=== PATIENT | male | born 1955 | race Caucasian/White ===

== ENCOUNTER 2020-12-06 05:17 | Emergency (ER) | payer MEDICARE, OTHER ==
[~2020-12-06 05:17] MED LIST: ALTACE10 MG PO; ASPIRIN EC81 MG PO; ATORVASTATIN CA40 MG PO; BENTYL10 MG PO; CARAFATE1 GM PO; CITALOPRAM HBR20 MG PO; CYCLOBENZAPRINE10 MG PO; ELIQUIS2.5 MG PO; GABAPENTIN600 MG PO; INVOKANA300 MG PO; JARDIANCE25 MG PO; MELOXICAM15 MG PO; METFORMIN HCL1000 MG PO; METOPROLOL SUCC25 MG PO; MICRONASE5 MG PO; MOTRIN600 MG PO; MYLICON80 MG PO; NAPROSYN250 MG PO; NORCO 5-325 TA1 EACH PO; OMEPRAZOLE 20MG20 MG PO; ONDANSETRON ODT4 MG PO; PHENERGAN12.5 M1 PO; PLAVIX75 MG PO; RAMIPRIL5 MG PO; SUCRALFATE1 GM PO; TAMSULOSIN HCL0.4 MG PO; TRULICITY1.5 MG/0.5 SC
[2020-12-06 05:49] LABS: BASOPHIL 1.1 % (0-2); HCT 49.4 % (42.0-52.0); HGB 17.7 g/dl (13.2-18.0); LYMPHOCYTE 25.6 % (15-48); MCH 30.5 pg (25.0-31.0); MCHC 35.8 g/dL (32.0-36.0); MCV 85.2 fL (78.0-100.0); MONOCYTE 12.9 % (0-12); MPV 10.3 fL (6.0-9.5); NEUTROPHIL 56.3 % (41-80); NRBC 0; PLT 230 K/uL (150-400); RDW 12.3 % (11.5-14.0); WBC 7.2 K/uL (4.0-10.5)
[2020-12-06 06:05] LABS: ALBUMIN 3.4 g/dL (3.4-5.0); BILIRUBIN - TOTAL 1.4 mg/dL (0.2-1.0); BUN/CREAT RATIO (CALC) 17.8 RATIO; CREATININE 0.9 mg/dL (0.67-1.17); GLOBULIN (CALCULATION) 3.7 g/dL; TOTAL PROTEIN 7.1 g/dL (6.4-8.2)
[2020-12-06 07:05] LABS: BILIRUBIN 1+ mg/dL (NEGATIVE); BLOOD NEGATIVE Ery/uL (NEGATIVE); CLARITY CLEAR (CLEAR); COLOR YELLOW (YELLOW); GLUCOSE (U) 3+ mg/dL (NORMAL); LEUKOCYTES NEGATIVE Leu/uL (NEGATIVE); NITRITE NEGATIVE (NEGATIVE); PROTEIN 2+ mg/dL (NEGATIVE); SPECIFIC GRAVITY >=1.030 (1.001-1.030)
[2020-12-06] MEDS ORDERED: ONDANSETRON ODT4 MG PO (07:15)
[2020-12-06 07:18] LABS: SQUAMOUS EPITHELIAL CELLS RARE
== END 2020-12-06 12:32 | disposition home or self-care (01) ==
LOC: FER 05:17
PROVIDERS: Student in an Organized Health Care Education/Training Program
DX: R11.2 Nausea with vomiting, unspecified (principal); R19.7 Diarrhea, unspecified; E87.6 Hypokalemia; I10 Essential (primary) hypertension; E11.9 Type 2 diabetes mellitus without complications; J44.9 Chronic obstructive pulmonary disease, unspecified; Z86.73 Personal history of transient ischemic attack (TIA), and cerebral infarction without residual deficits; Z85.820 Personal history of malignant melanoma of skin; Z79.82 Long term (current) use of aspirin; Z79.84 Long term (current) use of oral hypoglycemic drugs; Z79.02 Long term (current) use of antithrombotics/antiplatelets; Z79.01 Long term (current) use of anticoagulants; Z91.81 History of falling
CPT/HCPCS: 36415; 71045; 80053; 81001; 84484; 85025; 93005; J2405; J7030

== ENCOUNTER 2020-12-07 01:52 | Emergency (ER) | payer MEDICARE, OTHER | END 2020-12-07 02:11 | disposition left against medical advice (07) | LOC: FER 01:52 | DX: R10.9 Unspecified abdominal pain (principal); R11.0 Nausea; Z53.8 Procedure and treatment not carried out for other reasons ==

== ENCOUNTER 2020-12-20 12:54 | Emergency (ER) | payer MEDICARE, OTHER ==
[2020-12-20 14:59] LABS: EOSINOPHIL 4.7 % (0-7); HCT 48.3 % (42.0-52.0); HGB 17.7 g/dl (13.2-18.0); LYMPHOCYTE 24.3 % (15-48); MCH 30.9 pg (25.0-31.0); MCHC 36.6 g/dL (32.0-36.0); MCV 84.3 fL (78.0-100.0); MONOCYTE 9.1 % (0-12); MPV 10.8 fL (6.0-9.5); NEUTROPHIL 60.7 % (41-80); NRBC 0; PLT 241 K/uL (150-400); RBC 5.73 M/uL (4.70-6.00); RDW 12.1 % (11.5-14.0); WBC 5.9 K/uL (4.0-10.5)
[2020-12-20 15:12] LABS: BILIRUBIN NEGATIVE (NEGATIVE); BLOOD TRACE-LYSED Ery/uL (NEGATIVE); CLARITY CLEAR (CLEAR); COLOR YELLOW (YELLOW); GLUCOSE (U) 3+ mg/dL (NORMAL); LEUKOCYTES NEGATIVE Leu/uL (NEGATIVE); NITRITE NEGATIVE (NEGATIVE); PROTEIN NEGATIVE (NEGATIVE); SPECIFIC GRAVITY <=1.005 (1.001-1.030); UROBILINOGEN 0.2 mg/dL (0.2-1.0); pH 6.5 (5.0-9.0)
[2020-12-20 15:25] LABS: ALBUMIN 3.5 g/dL (3.4-5.0); BILIRUBIN - TOTAL 1.1 mg/dL (0.2-1.0); BUN/CREAT RATIO (CALC) 13.4 RATIO; CREATININE 0.82 mg/dL (0.67-1.17); GLOBULIN (CALCULATION) 3.9 g/dL; POTASSIUM 3.5 mmol/L (3.5-5.1); TOTAL PROTEIN 7.4 g/dL (6.4-8.2)
[2020-12-20 15:49] LABS: URINARY RBC RARE
[2020-12-20 16:03] LABS: CORONAVIRUS 2019 SARS-COV-2 NEGATIVE (NEGATIVE); INFLUENZA A NAA NEGATIVE (NEGATIVE)
== END 2020-12-20 15:29 | disposition left against medical advice (07) ==
LOC: FER 12:54
PROVIDERS: Emergency Medicine
DX: M79.10 Myalgia, unspecified site (principal); I10 Essential (primary) hypertension; J44.9 Chronic obstructive pulmonary disease, unspecified; E11.9 Type 2 diabetes mellitus without complications; Z53.8 Procedure and treatment not carried out for other reasons; Z20.822 Contact with and (suspected) exposure to COVID-19
CPT/HCPCS: 36415; 80053; 81001; 85025; 99283; U0002

== ENCOUNTER 2020-12-21 13:54 | Emergency (ER) | payer MEDICARE, OTHER | END 2020-12-21 15:15 | disposition left against medical advice (07) | LOC: FER 13:54 | DX: R06.02 Shortness of breath (principal); R10.9 Unspecified abdominal pain; R19.7 Diarrhea, unspecified; R11.0 Nausea; Z53.8 Procedure and treatment not carried out for other reasons ==

== ENCOUNTER 2020-12-25 04:42 | Emergency (ER) | payer MEDICARE, OTHER ==
[2020-12-25] MEDS ORDERED: BENTYL10 MG PO (20:41)
== END 2020-12-25 05:25 | disposition home or self-care (01) ==
LOC: FER 04:42
DX: K59.00 Constipation, unspecified (principal); I25.2 Old myocardial infarction; E11.9 Type 2 diabetes mellitus without complications; I10 Essential (primary) hypertension; Z90.49 Acquired absence of other specified parts of digestive tract; Z87.891 Personal history of nicotine dependence
CPT/HCPCS: 99283

== ENCOUNTER 2020-12-25 16:07 | Emergency (ER) | payer MEDICARE, OTHER ==
[2020-12-25 19:03] LABS: EOSINOPHIL 1.7 % (0-7); HCT 49.2 % (42.0-52.0); HGB 17.8 g/dl (13.2-18.0); LYMPHOCYTE 22.4 % (15-48); MCH 30.9 pg (25.0-31.0); MCHC 36.2 g/dL (32.0-36.0); MCV 85.4 fL (78.0-100.0); MPV 10.4 fL (6.0-9.5); NEUTROPHIL 62.9 % (41-80); NRBC 0; PLT 216 K/uL (150-400); RBC 5.76 M/uL (4.70-6.00); RDW 12.1 % (11.5-14.0); WBC 7.2 K/uL (4.0-10.5)
[2020-12-25 19:08] LABS: ALBUMIN 3.5 g/dL (3.4-5.0); BILIRUBIN - TOTAL 1.3 mg/dL (0.2-1.0); BUN/CREAT RATIO (CALC) 12.9 RATIO; CREATININE 0.93 mg/dL (0.67-1.17); POTASSIUM 3.7 mmol/L (3.5-5.1); TOTAL PROTEIN 7.5 g/dL (6.4-8.2)
[2020-12-25 19:09] LABS: BILIRUBIN NEGATIVE (NEGATIVE); BLOOD NEGATIVE Ery/uL (NEGATIVE); CLARITY HAZY (CLEAR); COLOR YELLOW (YELLOW); GLUCOSE (U) 2+ mg/dL (NORMAL); LEUKOCYTES NEGATIVE Leu/uL (NEGATIVE); NITRITE NEGATIVE (NEGATIVE); PROTEIN 2+ mg/dL (NEGATIVE); SPECIFIC GRAVITY 1.025 (1.001-1.030); UROBILINOGEN 0.2 mg/dL (0.2-1.0)
[2020-12-25 19:15] LABS: AMORPHOUS URATES CRYSTALS MODERATE; BACTERIA TRACE; SQUAMOUS EPITHELIAL CELLS RARE
[2020-12-25] MEDS ORDERED: BENTYL10 MG PO (20:41)
== END 2020-12-25 20:52 | disposition home or self-care (01) ==
LOC: FER 16:07
PROVIDERS: Physician Assistant
DX: K59.00 Constipation, unspecified (principal); R10.84 Generalized abdominal pain; R11.0 Nausea; I10 Essential (primary) hypertension; E11.9 Type 2 diabetes mellitus without complications; J44.9 Chronic obstructive pulmonary disease, unspecified; Z90.49 Acquired absence of other specified parts of digestive tract; Z85.828 Personal history of other malignant neoplasm of skin; Z79.899 Other long term (current) drug therapy; Z79.01 Long term (current) use of anticoagulants; Z79.82 Long term (current) use of aspirin
CPT/HCPCS: 36415; 71045; 80053; 81001; 83690; 84484; 85025; 87088; 93005; 99283; J2270; J2405; J7030

== ENCOUNTER 2020-12-28 15:28 | Emergency (ER) | payer MEDICARE, OTHER | END 2020-12-28 17:30 | disposition left against medical advice (07) | LOC: FER 15:28 | DX: R10.30 Lower abdominal pain, unspecified (principal); Z53.8 Procedure and treatment not carried out for other reasons | CPT/HCPCS: 74018 ==

== ENCOUNTER 2020-12-31 09:57 | Emergency (ER) | payer MEDICARE, OTHER ==
[2020-12-31] MEDS ORDERED: ATARAX25 MG PO (11:22)
[2020-12-31] MEDS ORDERED: MIRALAX17 GM PO (12:27)
== END 2020-12-31 12:52 | disposition home or self-care (01) ==
LOC: FER 09:57
DX: K59.00 Constipation, unspecified (principal); E11.9 Type 2 diabetes mellitus without complications; I10 Essential (primary) hypertension; Z90.49 Acquired absence of other specified parts of digestive tract
CPT/HCPCS: 99283

== ENCOUNTER 2021-01-02 15:42 | Emergency (ER) | payer MEDICARE, OTHER ==
[~2021-01-02 15:42] MED LIST changes: +ATARAX25 MG PO; +MIRALAX17 GM PO
== END 2021-01-02 16:31 | disposition home or self-care (01) ==
LOC: FER 15:42
DX: K59.00 Constipation, unspecified (principal); E11.9 Type 2 diabetes mellitus without complications; I10 Essential (primary) hypertension; J44.9 Chronic obstructive pulmonary disease, unspecified; I25.2 Old myocardial infarction; Z90.49 Acquired absence of other specified parts of digestive tract
CPT/HCPCS: 99283

== ENCOUNTER 2021-02-09 23:07 | Emergency (ER) | payer MEDICARE, OTHER ==
[2021-02-09 23:31] LABS: EOSINOPHIL 4.1 % (0-7); HCT 44.8 % (42.0-52.0); HGB 16.3 g/dl (13.2-18.0); LYMPHOCYTE 28.1 % (15-48); MCH 31.5 pg (25.0-31.0); MCHC 36.4 g/dL (32.0-36.0); MCV 86.7 fL (78.0-100.0); MPV 10.1 fL (6.0-9.5); NEUTROPHIL 54.7 % (41-80); NRBC 0; PLT 234 K/uL (150-400); RBC 5.17 M/uL (4.70-6.00); RDW 12.8 % (11.5-14.0); WBC 6.9 K/uL (4.0-10.5)
[2021-02-09 23:35] LABS: INR 1.07 (0.9-1.2); PROTHROMBIN TIME 13.2 SECONDS (11.4-13.6); PTT 28.3 SECONDS (22.2-34.7)
[2021-02-09 23:43] LABS: ALBUMIN 3.3 g/dL (3.4-5.0); ALKALINE PHOSHATASE 68 U/L (46-116); ALT 24 U/L (16-63); AST 20 U/L (15-37); BILIRUBIN - TOTAL 0.5 mg/dL (0.2-1.0); BUN 16 mg/dL (7-18); CHLORIDE 103 mmol/L (98-107); CO2 (BICARBONATE) 27 mmol/L (21-32); CREATININE 0.94 mg/dL (0.67-1.17); GLOBULIN (CALCULATION) 3.6 g/dL; GLUCOSE 287 mg/dL (74-106); LIPASE 244 U/L (73-393); MAGNESIUM 2.3 mg/dL (1.8-2.4); POTASSIUM 3.9 mmol/L (3.5-5.1); TOTAL PROTEIN 6.9 g/dL (6.4-8.2)
[2021-02-09 23:52] LABS: PRO-BNP 380 pg/mL (<125)
[2021-02-10 00:14] LABS: BILIRUBIN NEGATIVE (NEGATIVE); BLOOD NEGATIVE Ery/uL (NEGATIVE); CLARITY CLEAR (CLEAR); GLUCOSE (U) 3+ mg/dL (NORMAL); LEUKOCYTES NEGATIVE Leu/uL (NEGATIVE); NITRITE NEGATIVE (NEGATIVE); PROTEIN NEGATIVE (NEGATIVE); SPECIFIC GRAVITY 1.015 (1.001-1.030); UROBILINOGEN 0.2 mg/dL (0.2-1.0)
[2021-02-10 00:15] LABS: COLOR STRAW (YELLOW)
== END 2021-02-10 02:15 | disposition home or self-care (01) ==
LOC: FER 23:07
PROVIDERS: Emergency Medicine
DX: R07.89 Other chest pain (principal); I25.2 Old myocardial infarction; Z79.84 Long term (current) use of oral hypoglycemic drugs; Z79.02 Long term (current) use of antithrombotics/antiplatelets; Z79.82 Long term (current) use of aspirin; Z79.899 Other long term (current) drug therapy
CPT/HCPCS: 36415; 71045; 80053; 81003; 83690; 83735; 83880; 84145; 84484; 85025; 85610; 85730; 93005; G0480

== ENCOUNTER 2021-02-14 21:04 | Emergency (ER) | payer MEDICARE, OTHER ==
[2021-02-14 21:37] LABS: BASOPHIL 1.2 % (0-2); EOSINOPHIL 1.1 % (0-7); HCT 51.2 % (42.0-52.0); HGB 18.4 g/dl (13.2-18.0); LYMPHOCYTE 28.5 % (15-48); MCHC 35.9 g/dL (32.0-36.0); MCV 86.2 fL (78.0-100.0); MONOCYTE 11.9 % (0-12); NEUTROPHIL 57.1 % (41-80); NRBC 0; PLT 262 K/uL (150-400); RBC 5.94 M/uL (4.70-6.00); RDW 12.7 % (11.5-14.0); WBC 6.5 K/uL (4.0-10.5)
[2021-02-14 21:51] LABS: ALBUMIN 3.6 g/dL (3.4-5.0); BILIRUBIN - TOTAL 1.2 mg/dL (0.2-1.0); BUN/CREAT RATIO (CALC) 17.3 RATIO; CREATININE 1.04 mg/dL (0.67-1.17); GLOBULIN (CALCULATION) 3.5 g/dL; TOTAL PROTEIN 7.1 g/dL (6.4-8.2)
[2021-02-14 21:54] LABS: INR 1.05 (0.9-1.2); PTT 28.4 SECONDS (22.2-34.7)
[2021-02-14 21:56] LABS: D-DIMER 0.52 ug/mLFEU (0.00-0.41)
[2021-02-14 22:01] LABS: LACTIC ACID 2.2 mmol/L (0.4-1.9)
[2021-02-14 22:02] LABS: PRO-BNP 356 pg/mL (<125)
== END 2021-02-15 01:11 | disposition home or self-care (01) ==
LOC: FER 21:04
PROVIDERS: Emergency Medicine Emergency Medical Services
DX: S00.83XA Contusion of other part of head, initial encounter (principal); R07.89 Other chest pain; R42 Dizziness and giddiness; I49.1 Atrial premature depolarization; R53.1 Weakness; R10.84 Generalized abdominal pain; M79.662 Pain in left lower leg; M79.661 Pain in right lower leg; I25.2 Old myocardial infarction; I10 Essential (primary) hypertension; E11.9 Type 2 diabetes mellitus without complications; J44.9 Chronic obstructive pulmonary disease, unspecified; Z79.02 Long term (current) use of antithrombotics/antiplatelets; Z79.01 Long term (current) use of anticoagulants; W19.XXXA Unspecified fall, initial encounter
CPT/HCPCS: 36415; 70450; 70486; 71275; 72125; 80053; 82550; 83605; 83690; 83880; 84484; 85025; 85379; 85610; 85730; 93005; J7030; Q9967

== ENCOUNTER 2021-04-29 23:37 | Emergency (ER) | payer MEDICARE, OTHER ==
[2021-04-30 02:39] LABS: ALBUMIN 3.5 g/dL (3.4-5.0); BILIRUBIN - TOTAL 1.6 mg/dL (0.2-1.0); CREATININE 1.11 mg/dL (0.67-1.17); POTASSIUM 3.4 mmol/L (3.5-5.1); TOTAL PROTEIN 7.5 g/dL (6.4-8.2)
[2021-04-30 02:46] LABS: INR 0.98 (0.9-1.2); PROTHROMBIN TIME 12.3 SECONDS (11.4-13.6); PTT 25.7 SECONDS (22.2-34.7)
[2021-04-30 02:50] LABS: EOSINOPHIL 1.6 % (0-7); HCT 50.8 % (42.0-52.0); HGB 18.7 g/dl (13.2-18.0); LYMPHOCYTE 24.4 % (15-48); MCH 31.4 pg (25.0-31.0); MCHC 36.8 g/dL (32.0-36.0); MCV 85.2 fL (78.0-100.0); MONOCYTE 13.7 % (0-12); MPV 10.7 fL (6.0-9.5); NEUTROPHIL 59.2 % (41-80); NRBC 0; PLT 228 K/uL (150-400); RBC 5.96 M/uL (4.70-6.00); RDW 12.5 % (11.5-14.0)
== END 2021-04-30 01:27 | disposition home or self-care (01) ==
LOC: FER 23:37
PROVIDERS: Emergency Medicine
DX: S10.93XA Contusion of unspecified part of neck, initial encounter (principal); S20.229A Contusion of unspecified back wall of thorax, initial encounter; E11.65 Type 2 diabetes mellitus with hyperglycemia; I48.91 Unspecified atrial fibrillation; I48.92 Unspecified atrial flutter; R07.1 Chest pain on breathing; I25.2 Old myocardial infarction; I10 Essential (primary) hypertension; W06.XXXA Fall from bed, initial encounter
CPT/HCPCS: 36415; 71045; 72125; 72128; 80053; 84484; 85025; 85610; 85730; 93005

== ENCOUNTER 2021-06-01 12:51 | Emergency (ER) | payer MEDICARE, OTHER ==
[2021-06-01 14:28] LABS: BASOPHIL 1.1 % (0-2); EOSINOPHIL 1.7 % (0-7); HCT 48.1 % (42.0-52.0); HGB 17.4 g/dl (13.2-18.0); LYMPHOCYTE 14.9 % (15-48); MCH 31.1 pg (25.0-31.0); MCHC 36.2 g/dL (32.0-36.0); MCV 85.9 fL (78.0-100.0); MONOCYTE 8.8 % (0-12); MPV 10.9 fL (6.0-9.5); NEUTROPHIL 73.2 % (41-80); NRBC 0; PLT 201 K/uL (150-400); RDW 12.4 % (11.5-14.0); WBC 6.5 K/uL (4.0-10.5)
[2021-06-01 14:49] LABS: ALBUMIN 3.5 g/dL (3.4-5.0); BILIRUBIN - TOTAL 1.3 mg/dL (0.2-1.0); BUN/CREAT RATIO (CALC) 12.3 RATIO; CREATININE 1.22 mg/dL (0.67-1.17); GLOBULIN (CALCULATION) 3.3 g/dL; TOTAL PROTEIN 6.8 g/dL (6.4-8.2)
[2021-06-01 16:20] LABS: BILIRUBIN NEGATIVE (NEGATIVE); BLOOD NEGATIVE Ery/uL (NEGATIVE); CLARITY CLEAR (CLEAR); COLOR YELLOW (YELLOW); GLUCOSE (U) 3+ mg/dL (NORMAL); LEUKOCYTES NEGATIVE Leu/uL (NEGATIVE); NITRITE NEGATIVE (NEGATIVE); PROTEIN NEGATIVE (NEGATIVE)
== END 2021-06-01 17:16 | disposition home or self-care (01) ==
LOC: FER 12:51
PROVIDERS: Emergency Medicine
DX: E11.65 Type 2 diabetes mellitus with hyperglycemia (principal); J44.9 Chronic obstructive pulmonary disease, unspecified; I10 Essential (primary) hypertension; Z87.891 Personal history of nicotine dependence; Z79.84 Long term (current) use of oral hypoglycemic drugs
CPT/HCPCS: 36415; 71045; 80053; 81003; 84484; 85025; 93005; J7030

== ENCOUNTER 2021-06-18 11:31 | Emergency (ER) | payer OTHER, MEDICARE ==
[2021-06-18 12:28] LABS: BASOPHIL 1.4 % (0-2); EOSINOPHIL 3.5 % (0-7); HCT 48.7 % (42.0-52.0); HGB 17.9 g/dl (13.2-18.0); LYMPHOCYTE 25.2 % (15-48); MCH 30.8 pg (25.0-31.0); MCHC 36.8 g/dL (32.0-36.0); MCV 83.7 fL (78.0-100.0); MONOCYTE 13.1 % (0-12); MPV 10.4 fL (6.0-9.5); NEUTROPHIL 56.8 % (41-80); NRBC 0; PLT 205 K/uL (150-400); RBC 5.82 M/uL (4.70-6.00); WBC 5.1 K/uL (4.0-10.5)
[2021-06-18 12:54] LABS: BUN/CREAT RATIO (CALC) 12.5 RATIO; CREATININE 1.04 mg/dL (0.67-1.17); POTASSIUM 3.9 mmol/L (3.5-5.1)
[2021-06-18 13:18] LABS: BILIRUBIN NEGATIVE (NEGATIVE); BLOOD NEGATIVE Ery/uL (NEGATIVE); CLARITY CLEAR (CLEAR); COLOR YELLOW (YELLOW); GLUCOSE (U) 3+ mg/dL (NORMAL); LEUKOCYTES NEGATIVE Leu/uL (NEGATIVE); NITRITE NEGATIVE (NEGATIVE); PROTEIN NEGATIVE (NEGATIVE); UROBILINOGEN 0.2 mg/dL (0.2-1.0); pH 5.5 (5.0-9.0)
[2021-06-18] MEDS ORDERED: DICLOFENAC SODI75 MG PO (13:52)
[2021-06-18] MEDS ORDERED: CYCLOBENZAPRINE10 MG PO (13:52)
== END 2021-06-18 14:15 | disposition home or self-care (01) ==
LOC: FER 11:31
PROVIDERS: Emergency Medicine
DX: S13.4XXA Sprain of ligaments of cervical spine, initial encounter (principal); E11.65 Type 2 diabetes mellitus with hyperglycemia; I10 Essential (primary) hypertension; J44.9 Chronic obstructive pulmonary disease, unspecified; Z87.891 Personal history of nicotine dependence; V43.52XA Car driver injured in collision with other type car in traffic accident, initial encounter; Y92.410 Unspecified street and highway as the place of occurrence of the external cause
CPT/HCPCS: 36415; 70450; 72125; 80048; 81003; 85025; J1885; J2800; J7030; J7050

== ENCOUNTER 2021-06-23 09:35 | Inpatient (IN) | payer MEDICARE, OTHER ==
[~2021-06-23] VITALS: Ht 182.9 cm; Wt 105.9 kg
[~2021-06-23 09:35] MED LIST changes: +DICLOFENAC SODI75 MG PO
[2021-06-23 10:26] LABS: BASOPHIL 0.8 % (0-2); EOSINOPHIL 2.8 % (0-7); HCT 45.4 % (42.0-52.0); HGB 16.3 g/dl (13.2-18.0); MCH 31.2 pg (25.0-31.0); MCHC 35.9 g/dL (32.0-36.0); MCV 86.8 fL (78.0-100.0); MONOCYTE 11.4 % (0-12); MPV 10.9 fL (6.0-9.5); NEUTROPHIL 62.7 % (41-80); NRBC 0; PLT 206 K/uL (150-400); RBC 5.23 M/uL (4.70-6.00); RDW 12.3 % (11.5-14.0); WBC 7.2 K/uL (4.0-10.5)
[2021-06-23 10:30] LABS: INR 1.2 (0.9-1.2); PROTHROMBIN TIME 14.6 SECONDS (11.8-13.4); PTT 27.9 SECONDS (24.4-34.7)
[2021-06-23 10:49] LABS: ALBUMIN 3.1 g/dL (3.4-5.0); BILIRUBIN - TOTAL 1.2 mg/dL (0.2-1.0); BUN/CREAT RATIO (CALC) 17.9 RATIO; C-REACTIVE PROTEIN 0.9 mg/dL (<=0.90); CREATININE 1.45 mg/dL (0.67-1.17); GLOBULIN (CALCULATION) 3.5 g/dL; POTASSIUM 3.8 mmol/L (3.5-5.1); TOTAL PROTEIN 6.6 g/dL (6.4-8.2)
[2021-06-23 10:53] LABS: PRO-BNP 93 pg/mL (<125)
[2021-06-23 11:02] LABS: LACTIC ACID 2.1 mmol/L (0.4-1.9)
[2021-06-23 19:58] LABS: BILIRUBIN NEGATIVE (NEGATIVE); BLOOD NEGATIVE Ery/uL (NEGATIVE); CLARITY CLEAR (CLEAR); COLOR YELLOW (YELLOW); GLUCOSE (U) 3+ mg/dL (NORMAL); LEUKOCYTES NEGATIVE Leu/uL (NEGATIVE); NITRITE NEGATIVE (NEGATIVE); PROTEIN NEGATIVE (NEGATIVE); UROBILINOGEN 0.2 mg/dL (0.2-1.0)
--- NOTE | 2021-06-24 01:54 | NUR ---
PATIENT ARRIVED TO FLOOR AT 0015 FROM ER, ALERT AND ORIENTED ABLE TO MAKE NEEDS KNOW
[2021-06-24] MEDS ORDERED: PRILOSEC20 MG PO (04:03)
[2021-06-24] MEDS ORDERED: CARAFATE1 GM PO (04:04)
[2021-06-24] MEDS ORDERED: CELEXA20 M1 PO (04:06)
[2021-06-24] MEDS ORDERED: FLOMAX 0.4 MG0.4 MG PO (04:06)
[2021-06-24] MEDS ORDERED: GABAPENTIN600 MG PO (04:07)
[2021-06-24] MEDS ORDERED: BENTYL10 MG PO (04:07)
--- NOTE | 2021-06-24 04:27 | NUR ---
ER HAD CALLED TO GIVE REPORT AND WE STILL HAD AN BODY IN ICU 4. PT. WAS COVID SO THE ROOM HAD TO BE TERMINALLY CLEANED. I DID NOT ACCEPT REPORT UNTIL THE ROOM WAS EMPTY AND THE CLEANING WAS INITIATED. ER,RN
== END 2021-06-24 11:45 | disposition home or self-care (01) | DRG 638 ==
LOC: FER 09:35 → FICU 17:14 → FMS 06-24 04:01
PROVIDERS: Emergency Medicine; ADMIT Internal Medicine
DX: E11.65 Type 2 diabetes mellitus with hyperglycemia (principal); N17.9 Acute kidney failure, unspecified; I95.1 Orthostatic hypotension; I25.10 Atherosclerotic heart disease of native coronary artery without angina pectoris; Z20.822 Contact with and (suspected) exposure to COVID-19; R91.1 Solitary pulmonary nodule; E78.00 Pure hypercholesterolemia, unspecified; J43.9 Emphysema, unspecified; F41.9 Anxiety disorder, unspecified; I71.9 Aortic aneurysm of unspecified site, without rupture; I25.2 Old myocardial infarction; Z86.718 Personal history of other venous thrombosis and embolism; Z79.01 Long term (current) use of anticoagulants; Z79.899 Other long term (current) drug therapy; Z87.891 Personal history of nicotine dependence; Z90.49 Acquired absence of other specified parts of digestive tract; Z90.89 Acquired absence of other organs; Z86.73 Personal history of transient ischemic attack (TIA), and cerebral infarction without residual deficits
CPT/HCPCS: 36415; 71045; 71250; 80053; 81003; 82530; 83540; 83605; 83615; 83690; 83735; 83880; 84145; 84443; 84484; 85025; 85610; 85730; 86140; 93005; 97162; 97165; 97530-GP; 97535; J1720; J7030; U0002

== ENCOUNTER 2021-12-14 13:45 | Emergency (ER) | payer MEDICARE, OTHER ==
[~2021-12-14 13:45] MED LIST changes: +CELEXA20 M1 PO; +FLOMAX 0.4 MG0.4 MG PO; +PRILOSEC20 MG PO
== END 2021-12-14 15:57 | disposition left against medical advice (07) ==
LOC: FER 13:45 → FOD 13:45 → FER 15:57 → EDSTATUS 18:03
DX: E11.9 Type 2 diabetes mellitus without complications (principal); I10 Essential (primary) hypertension; J44.9 Chronic obstructive pulmonary disease, unspecified; I25.2 Old myocardial infarction; Z86.73 Personal history of transient ischemic attack (TIA), and cerebral infarction without residual deficits
CPT/HCPCS: 99282